=== PATIENT | female | born 1980 | race American Indian/Alaskan Native ===

== ENCOUNTER 2019-05-22 22:49 | Emergency (ER) | payer SELFPAY ==
[2019-05-23] MEDS ORDERED: MORPHINE 4 MG/1 ML INJ IV ONE (02:47)
--- NOTE | 2019-05-23 03:38 | Emergency Department Report ---
HPI - HPI HPI: 38-year-old -[place] female presents to the emergency department with a complaint of some pain, that she describes as a soreness and stiffness, to the mid to low back, bilateral lower extremities including feet. This is been going on for the past 3 days. She denies any fall, trauma, injury or inciting event. She has a past medical history of cel-[id number] diabetes and multiple sclerosis and says that she feels this is a "flareup" of her multiple sclerosis. She has tried some Tylenol at home for her symptoms without much relief. She denies any fever, problems with bowel or bladder, numbness or paresthesias, or any neurological deficits. No recent or sick contacts at home. The patient denies any shortness of breath while at rest but does say that when the pain gets to be very intense that it makes her feel short of breath or "takes my breath away." <WILMER SALCIDO - Last Filed: 05/23/19 03:34> <CALVIN BARROSO - Last Filed: 05/23/19 05:14> - General Chief Complaint: Dyspnea/Respdistress Time Seen by Provider: 05/23/19 02:46 ED Past Medical Hx - Past Medical History Previous Medical History?: Yes Hx Diabetes: Yes Additional medical history: MS. Herpes. enlarged heart - Surgical History Past Surgical History?: No - Social History Smoking Status: Never Smoker <WILMER SALCIDO - Last Filed: 05/23/19 03:34> <CALVIN BARROSO - Last Filed: 05/23/19 05:14> - Medications Home Medications: Home Medications Medication Instructions Recorded Confirmed Last Taken Type traMADoL [Ultram 50 MG tab] 50 mg PO Q6HR PRN #10 tablet 05/23/19 Unknown Rx ED Review of Systems ROS: Stated complaint: MS ,DIABETIC, DIFF BREATHING Other details as noted in HPI Comment: All other systems reviewed and negative Constitutional: denies: chills, fever Eyes: denies: eye pain, vision change ENT: denies: ear pain, throat pain Respiratory: denies: cough, wheezing Cardiovascular: denies: chest pain, palpitations Gastrointestinal: denies: abdominal pain, vomiting Genitourinary: denies: dysuria, discharge Musculoskeletal: back pain, arthralgia, myalgia Skin: denies: rash, lesions Neurological: denies: headache, weakness, numbness, paresthesias <WILMER SALCIDO S - Last Filed: 05/23/19 03:34> ROS: Stated complaint: MS ,DIABETIC, DIFF BREATHING Other details as noted in HPI <CALVIN BARROSO - Last Filed: 05/23/19 05:14> Physical Exam - Physical Exam Vital Signs: Vital Signs 05/22/19 05/23/19 05/23/19 23:30 02:45 03:14 Temperature 97.9 F 97.9 F Pulse Rate 66 60 Respiratory 20 16 18 Rate Blood Pressure 151/83 Blood Pressure 148/99 [Right] O2 Sat by Pulse 100 100 Oximetry Physical Exam: GENERAL: The patient is well-developed well-nourished. HENT: Normocephalic. Atraumatic. Patient has moist mucous membranes. EYES: Extraocular motions are intact. NECK: Supple. Trachea is midline. CHEST/LUNGS: Clear to auscultation. There is no respiratory distress noted. HEART/CARDIOVASCULAR: Regular. There is no tachycardia. There is no murmur. ABDOMEN: Abdomen is soft, nontender. Patient has normal bowel sounds. There is no abdominal distention. SKIN: Skin is warm and dry. NEURO: The patient is awake, alert, and oriented. The patient is cooperative. The patient has no focal neurologic deficits. Normal speech. MUSCULOSKELETAL: There is some reproducible tenderness to palpation along the bilateral thighs and tib-fib. No obvious deformity. There is no limitation range of motion. There is no evidence of acute injury. BACK: There is both midline and bilateral paraspinal tenderness to palpation to the lower thoracic and the lumbar back. No step-off or deformity. <WILMER SALCIDO S - Last Filed: 05/23/19 03:34> - Physical Exam Vital Signs: Vital Signs 05/22/19 05/23/19 05/23/19 23:30 02:45 03:14 Temperature 97.9 F 97.9 F Pulse Rate 66 60 Respiratory 20 16 18 Rate Blood Pressure 151/83 Blood Pressure 148/99 [Right] O2 Sat by Pulse 100 100 Oximetry 05/23/19 03:44 Temperature Pulse Rate Respiratory 18 Rate Blood Pressure Blood Pressure [Right] O2 Sat by Pulse Oximetry <CALVIN BARROSO - Last Filed: 05/23/19 05:14> ED Course Vital Signs 05/22/19 05/23/19 05/23/19 23:30 02:45 03:14 Temperature 97.9 F 97.9 F Pulse Rate 66 60 Respiratory 20 16 18 Rate Blood Pressure 151/83 Blood Pressure 148/99 [Right] O2 Sat by Pulse 100 100 Oximetry <WILMER SALCIDO - Last Filed: 05/23/19 03:34> Vital Signs 05/22/19 05/23/19 05/23/19 23:30 02:45 03:14 Temperature 97.9 F 97.9 F Pulse Rate 66 60 Respiratory 20 16 18 Rate Blood Pressure 151/83 Blood Pressure 148/99 [Right] O2 Sat by Pulse 100 100 Oximetry 05/23/19 03:44 Temperature Pulse Rate Respiratory 18 Rate Blood Pressure Blood Pressure [Right] O2 Sat by Pulse Oximetry <CALVIN BARROSO - Last Filed: 05/23/19 05:14> ED Medical Decision Making - Lab Data Result diagrams: 05/23/19 03:21 05/23/19 03:21 - Medical Decision Making CBC chemistry CK chest x-ray are all within normal limits. I updated Mrs. Rodrigez on the results. She is discharged home. <CALVIN BARROSO - Last Filed: 05/23/19 05:14> Critical care attestation.: If time is entered above; I have spent that time in minutes in the direct care of this critically ill patient, excluding procedure time. <WILMER SALCIDO S - Last Filed: 05/23/19 03:34> Critical care attestation.: If time is entered above; I have spent that time in minutes in the direct care of this critically ill patient, excluding procedure time. <CALVIN BARROSO - Last Filed: 05/23/19 05:14> ED Disposition Is pt being admited?: No Time of Disposition: 03:38 <WILMER SALCIDO - Last Filed: 05/23/19 03:34> Is pt being admited?: No Does the pt Need Aspirin: No <CALVIN BARROSO - Last Filed: 05/23/19 05:14> Clinical Impression: Musculoskeletal pain, Diabetic neuropathy Disposition: - TO HOME OR SELFCARE Condition: Stable Instructions: Peripheral Neuropathy (ED), Musculoskeletal Pain (ED), Diabetes Mellitus Type 2 in Adults (ED) Additional Instructions: Please follow-up with your primary care physician in the next few days. Return to the emergency Department with any worsening of your symptoms or any acute distress. You have been prescribed a medication that is sedating and therefore should not be taken prior to driving, working, and responsible for children and in no way should be mixed with alcohol of any quantity. Prescriptions: traMADoL [Ultram 50 MG tab] 50 mg PO Q6HR PRN #10 tablet PRN Reason: Pain Referrals: PRIMARY CARE, [Primary Care Provider] - 2-3 Days
[2019-05-23] MEDS ORDERED: methylPREDNISolone Sod Succinate 125 MG/2 ML INJ IV ONE (03:40)
[2019-05-23 03:42] LABS: Basophils % (Auto) 0.4 % (0.0-1.8); Eosinophils # (Auto) 0.2 K/mm3 (0.0-0.4); Eosinophils % (Auto) 2.3 % (0.0-4.3); Hematocrit 33.2 % (30.3-42.9); Hemoglobin 10.5 gm/dl (10.1-14.3); Lymphocytes # (Auto) 3.3 K/mm3 (1.2-5.4); Lymphocytes % (Auto) 49.9 % (13.4-35.0); Mean Corpuscular HGB Conc 32 % (30-34); Mean Corpuscular Volume 76 fl (79-97); Monocytes # (Auto) 0.4 K/mm3 (0.0-0.8); Monocytes % (Auto) 6.6 % (0.0-7.3); Platelet Count 332 K/mm3 (140-440); Red Blood Count 4.36 M/mm3 (3.65-5.03); Red Cell Distribution Width 16.6 % (13.2-15.2)
[2019-05-23 04:00] LABS: BUN/Creatinine Ratio 12; Blood Urea Nitrogen 7 mg/dL (7-17); Calcium 8.8 mg/dL (8.4-10.2); Hemolysis Index 13
--- NOTE | 2019-05-23 05:00 | XRay Report ---
CHEST 2 VIEWS INDICATION: SOB. COMPARISON: None. FINDINGS: Support devices: None. Heart: Within normal limits. Lungs/Pleura: No acute air space or interstitial disease. No significant pleural effusion. IMPRESSION: No acute findings. Signer Name: Maxx Richardson MD Signed: 05/23/2019 4:55 AM Workstation Name: [id number]
[2019-05-23 06:10] VITALS: BP 136/79
== END 2019-05-23 05:30 | disposition home or self-care (01) ==
LOC: ED 22:49
DX: E11.40 Type 2 diabetes mellitus with diabetic neuropathy, unspecified (principal); Z79.84 Long term (current) use of oral hypoglycemic drugs
CPT/HCPCS: 36415; 71046; 80048; 82550; 84703; 85025; 96374; 96375; 99284; J2270; J2930